=== PATIENT | female | born 1995 | race Two or more races ===

== ENCOUNTER 2025-04-29 07:59 | Observation (INO) | payer BC, SELFPAY ==
[2025-04-29] VITALS (44 sets, daily range): BP systolic 121–129; BP diastolic 85–99; PULSE 106–130; RESP 16–97; TEMP 36.9; O2SAT 92–98; BMI 39.3
--- NOTE | 2025-04-29 08:15 | XR_ITS ---
Examination: Complete OB ultrasound greater than 14 weeks Date and time of exam: April 29, 2025, 0908 hrs. Indications: Decreased movement beginning 2 days ago. Findings: Viable intrauterine single fetus with single amniotic sac presentation cephalic, spine maternal right. Cardiac motion 147 BPM. Placenta anterior grade 2. Umbilical cord insertion seen. Amniotic fluid index 6.2 cm. Cervix 3.6 cm Ovaries obscured by the fetus. Composite estimated gestational age based on BPD, head circumference, abdominal circumference, femur length is 34 weeks 6 days, estimated weight 2434 g Survey of intracranial anatomy, spinal anatomy, abdominal anatomy, four-chamber heart performed with no abnormalities identified. Impression: Viable intrauterine gestation cephalic presentation..
--- NOTE | 2025-04-29 08:15 | XR_ITS ---
Examination: Biophysical profile, ultrasound Date and time of exam: April 29, 2025, 0926 hrs. Indications: Decreased movement beginning 2 days ago. Technique: Multiple transabdominal sonographic images of the pelvis abdomen obtained. Attention is directed to the breathing movement, gross body movement, amniotic fluid volume and tone. Findings: Amniotic fluid index 6.7 cm. Total biophysical profile is 8 of 8. breathing movement is 2. Gross body movement is 2. tone is 2. Qualitative amniotic fluid volume is 2 Impression: Biophysical profile is 8 of 8.
[2025-04-29 09:16] LABS: Collection Type, Urine Clean Catch
[2025-04-29 09:28] LABS: Bilirubin,Urine Negative (Negative); Blood,Urine Negative (Negative); Clarity,Urine Clear (Clear/Hazy); Color,Urine Lt-Yellow (Lt Yel-Yel); Glucose, Urine Negative (Negative); Ketones,Urine Negative (Negative); Leukocyte Esterase,Urine Negative (Negative); Nitrite,Urine Negative (Negative); PH,Urine 7.0 (5.0-7.0); Protein,Urine Negative (Neg - Trace); RBC,Urine 1 /hpf (0-3); Specific Gravity,Urine 1.007 (1.001-1.035); Squamous Epithelial Cell,Urine 4 /hpf (0-5); Urobilinogen,Urine Negative mg/dL (0.0-1.0); WBC,Urine < 1 /hpf (0-5)
[2025-04-29 09:31] LABS: Basophils # (Auto) 0.0 Thou/mm3 (0.0-0.2); Basophils % (Auto) 0 % (0-2.5); Eosinophils # (Auto) 0.0 Thou/mm3 (0.0-0.5); Eosinophils % (Auto) 0 % (0-10); Hematocrit 40.6 % (36.0-46.0); Hemoglobin 13.3 g/dL (12.0-16.0); Immature Granulocytes Auto 0.05 Thou/mm3 (0.00-0.00); Lymphocytes # (Auto) 1.3 Thou/mm3 (1.0-4.8); Lymphocytes % (Auto) 13 % (10-50); Mean Corpuscular HGB Conc 32.8 g/dl (31.0-37.0); Mean Corpuscular Hemoglobin 27.5 pg (25.0-35.0); Mean Corpuscular Volume 84 fL (80-100); Monocytes # (Auto) 1.0 Thou/mm3 (0.0-0.8); Monocytes % (Auto) 9 % (0-12); Neutrophils # (Auto) 7.8 Thou/mm3 (1.8-7.7); Neutrophils % (Auto) 77 % (37-80); Nucleated Red Blood Cell # 0.00 Thou/mm3 (0.00-0.00); Nucleated Red Blood Cell % 0 /100 WBC (0); Platelet Count 234 Thou/mm3 (140-440); RDW Standard Deviation 39.8 fL (36.4-46.3); Red Blood Count 4.84 Miln/mm3 (4.00-5.20); White Blood Count 10.2 Thou/mm3 (3.6-11.0)
[2025-04-29 09:41] LABS: INR 0.9 (0.9-1.3); Partial Thromboplastin Time 29.6 Seconds (22.0-36.0); Prothrombin Time 10.3 Seconds (9.0-12.2)
[2025-04-29 09:43] LABS: Fibrinogen 759 mg/dL (175-375)
[2025-04-29 10:05] LABS: Creatinine,Random Urine 30 mg/dL (30-125); Protein Total, Random Urine < 6 mg/dL (1-14)
[2025-04-29 10:11] LABS: Alanine Aminotransferase 17 U/L (10-49); Albumin, Serum 3.7 gm/dL (3.5-5.0); Albumin/Globulin Ratio 1.4 (1.2-2.2); Alkaline Phosphatase 149 U/L (46-116); Anion Gap 10 (7-16); Aspartate Amino Transferase 19 U/L (0-34); BUN/Creatinine Ratio 10 Ratio (12-20); Bilirubin,Total 0.5 mg/dL (0.3-1.2); Blood Urea Nitrogen < 5 mg/dL (9-23); Calcium 9.6 mg/dL (8.3-10.6); Calcium (Corrected) 9.8 mg/dL (8.5-10.1); Carbon Dioxide 22.4 mMol/L (20.0-31.0); Chloride 106 mMol/L (98-107); Creatinine (Component) 0.5 mg/dL (0.6-1.3); Globulin 2.6 gm/dL (2.3-3.5); Glucose 97 mg/dL (74-106); Osmolality,Calculated 272 (275-295); Potassium 4.0 mMol/L (3.4-5.1); Sodium 138 mMol/L (136-145); Total Protein 6.3 gm/dL (5.7-8.2); eGFR > 60 See Note
[2025-04-29 10:23] LABS: Uric Acid 3.2 mg/dL (3.1-7.8)
== END 2025-04-29 11:50 | disposition home or self-care (01) ==
PROVIDERS: Admitting Provider Obstetrics & Gynecology; Visit Provider Obstetrics & Gynecology
DX: O36.8130 Decreased fetal movements, third trimester, not applicable or unspecified (principal); Z3A.34 34 weeks gestation of pregnancy
CPT/HCPCS: 36415; 59025; 59899; 76805; 76819; 80053; 81001; 82570; 84156; 84550; 85025; 85384; 85610; 85730

== ENCOUNTER 2025-06-01 05:43 | Inpatient (IN) | payer BC, SELFPAY ==
--- NOTE | 2025-05-25 19:34 | ESHP_ITS ---
RE: JAIMIE HUANG : 1995 DATE OF ADMISSION: 06/01/2025 HISTORY OF PRESENT ILLNESS: This is a 30-year-old 2 para 1-0-0-1 with due date of 06/08/2025 with intrauterine at 39 weeks on 06/01/2025, who presents for repeat delivery and bilateral tubal ligation. The patient denies any leaking or bleeding. She reports normal movement. She has occasional contractions. ALLERGIES: NO KNOWN DRUG ALLERGIES. MEDICATION: multivitamin 1 p.o. daily. PAST MEDICAL HISTORY: Anxiety. FAMILY HISTORY: Down syndrome and diabetes. SOCIAL HISTORY: She is . She denies any alcohol or drug use or smoking. OBSTETRIC HISTORY: 05/20/2022, 40 weeks delivery, 6 pound 8 ounce male, no complications. PAST SURGICAL HISTORY: 2021 delivery. REVIEW OF SYSTEMS: She denies any chest pain, palpitations, cough, fever, shortness of breath or lower extremity pain. She denies any headache, change in vision or right upper quadrant pain. PHYSICAL EXAMINATION: VITAL SIGNS: Blood pressure is 133/85, heart rate 88, respirations 18, temperature is 98.6, and weight 285 pounds. HEENT: Oropharynx and sclerae are clear. LUNGS: Clear to auscultation bilaterally. HEART: Regular rate and rhythm. ABDOMEN: Gravid term size. Old Pfannenstiel scar noted. EXTREMITIES: Nontender. SKIN: No gross rashes or lesions. NEUROLOGIC: No focal deficit. ASSESSMENT: Intrauterine at 39 weeks, previous delivery, elects to repeat delivery, multiparity, desires voluntary sterilization. PLAN: delivery and bilateral tubal ligation. Informed consent was obtained. The patient was made aware of the risks, complications, alternatives, and benefits of the proposed procedure and she agrees. DT: 19:02:10 TT: 19:32:00 Ref: [id number] - TID: [id number] MTDD
[2025-05-31 09:13] LABS: Basophils # (Auto) 0.0 Thou/mm3 (0.0-0.2); Basophils % (Auto) 0 % (0-2.5); Eosinophils # (Auto) 0.1 Thou/mm3 (0.0-0.5); Eosinophils % (Auto) 1 % (0-10); Hematocrit 41.6 % (36.0-46.0); Hemoglobin 13.8 g/dL (12.0-16.0); Immature Granulocytes Auto 0.06 Thou/mm3 (0.00-0.00); Lymphocytes # (Auto) 2.8 Thou/mm3 (1.0-4.8); Lymphocytes % (Auto) 23 % (10-50); Mean Corpuscular HGB Conc 33.2 g/dl (31.0-37.0); Mean Corpuscular Hemoglobin 27.5 pg (25.0-35.0); Mean Corpuscular Volume 83 fL (80-100); Monocytes # (Auto) 0.9 Thou/mm3 (0.0-0.8); Monocytes % (Auto) 8 % (0-12); Neutrophils # (Auto) 8.2 Thou/mm3 (1.8-7.7); Neutrophils % (Auto) 68 % (37-80); Nucleated Red Blood Cell # 0.00 Thou/mm3 (0.00-0.00); Nucleated Red Blood Cell % 0 /100 WBC (0); Platelet Count 248 Thou/mm3 (140-440); RDW Standard Deviation 41.0 fL (36.4-46.3); Red Blood Count 5.02 Miln/mm3 (4.00-5.20); White Blood Count 12.0 Thou/mm3 (3.6-11.0)
[2025-05-31 09:28] LABS: Alanine Aminotransferase 14 U/L (10-49); Albumin, Serum 3.8 gm/dL (3.5-5.0); Albumin/Globulin Ratio 1.5 (1.2-2.2); Alkaline Phosphatase 172 U/L (46-116); Anion Gap 10 (7-16); Aspartate Amino Transferase 19 U/L (0-34); BUN/Creatinine Ratio 15 Ratio (12-20); Bilirubin,Total 0.5 mg/dL (0.3-1.2); Blood Urea Nitrogen 9 mg/dL (9-23); Calcium 9.1 mg/dL (8.3-10.6); Calcium (Corrected) 9.3 mg/dL (8.5-10.1); Carbon Dioxide 23.4 mMol/L (20.0-31.0); Chloride 106 mMol/L (98-107); Creatinine (Component) 0.6 mg/dL (0.6-1.3); Globulin 2.5 gm/dL (2.3-3.5); Glucose 83 mg/dL (74-106); Osmolality,Calculated 275 (275-295); Potassium 4.1 mMol/L (3.4-5.1); Sodium 139 mMol/L (136-145); Total Protein 6.3 gm/dL (5.7-8.2); eGFR > 60 See Note
[2025-05-31 10:00] LABS: Syphilis Nonreactive (Nonreactive)
[2025-05-31 10:03] LABS: INR 0.9 (0.9-1.3); Partial Thromboplastin Time 29.0 Seconds (22.0-36.0); Prothrombin Time 10.1 Seconds (9.0-12.2)
[2025-06-01] VITALS (37 sets, daily range): BP systolic 131–169; BP diastolic 82–114; PULSE 78–109; RESP 14–30; TEMP 36.2–37.1; O2SAT 93–99; BMI 41.6
[2025-06-01] MEDS: ceFAZolin/D5W 2 GM IV 2 GM/100 ML BAG IV (07:23)
[2025-06-01] MEDS: CITRIC ACID/SODIUM CITR 15 ML UDC (BICITRA) 30 ML PO (07:23)
[2025-06-01] MEDS: FAMOTIDINE INJ 10 MG/ML VIAL 2 ML 20 MG IV (07:24)
[2025-06-01] MEDS: RINGERS LACTATED 1000 ML 1,000 ML 100 ML IV (07:26)
--- NOTE | 2025-06-01 08:36 | ESDS_ITS ---
DS: Providers Provider Date of admission: 06/01/25 05:43 Primary care physician: Physician No Primary/Family Admitting Provider: Rafa Chester MD Attending Provider on Admission: Rafa Chester MD Attending Provider on DC: Rafa Chester MD Discharging Provider: Rafa Chester MD DS: Diagnosis Discharge Diagnosis (1) Status post bilateral salpingectomy: Status: Acute (2) delivery delivered: Status: Acute Problem List Completed Was Problem List Reviewed/Reconciled?: Yes Summary/Hosp Course Peripartum Data Delivery Method: Low Transverse Procedures: Procedures Operation Date: 06/01/25 07:45 <No data on this case meets the specified criteria> Time Spent with Patient Time attestation: Total time spent providing and/or coordinating discharge services: Exam Vital Signs Temp Pulse Resp BP Pulse Ox O2 Del Method 98.2 F 90 19 137/96 H 98 Room Air 06/01/25 07:00 06/01/25 06:00 06/01/25 07:00 06/01/25 06:00 06/01/25 07:23 06/01/25 07:00 Discharge Plan Plan Patient Disposition: HOME (Self Care) Patient condition on transfer: Stable Prescriptions/Referrals Referrals: No Primary/Family,Physician [Primary Care Provider] Patient/Caregiver Discharge Instructions Discharge Activity: activity as tolerated Other Discharge Activity Instructions:: Follow up office 1 week She already has a Rx for [place] Education Materials: C Section Dc Print Language: Maori Stand Alone Forms: Rhona Award Info., Patient Portal Info Letter Planned Discharge Date 06/03/25
--- NOTE | 2025-06-01 08:37 | PD.GYNPROC ---
Operative Note - DOUBLE BASS PLAYER Procedure Date of procedure: 06/01/25 Procedure Performed: Repeat low-transverse section via Pfannenstiell skin incision Indication: Intrauterine at 39 weeks and 0 days Multiparity desires voluntary sterilization Previous delivery elects repeat delivery Pre-Op diagnosis: Intrauterine at 39 weeks and 0 days Multiparity desires voluntary sterilization Previous delivery elects repeat delivery Post-Op diagnosis: Intrauterine at 39 weeks and 0 days Multiparity desires voluntary sterilization Previous delivery elects repeat delivery Anesthesia type: Spinal Procedure description: After proper informed consent was obtained and the patient was made aware of the risks, complications, alternatives and benefits of the proposed procedure she was taken to the operating room where she underwent induction of spinal anesthesia. She was prepped and draped in the usual sterile fashion. A timeout was performed.? A Pfannenstiel skin incision was made with the scalpel and carried through to the underlying layer of fascia with the Bovie. The fascia was nicked in the midline incision and the incision was extended bilaterally with the Bovie. The inferior aspect of the fascial incision was grasped with Rosana clamps elevated and the underlying rectus muscle dissected off with the Bovie. The superior aspect the fascial incision was grasped with Rosana clamps elevated and the underlying rectus muscle dissected off with the Bovie. The rectus muscles were in the midline. The peritoneum was grasped between 2 Quinn clamps and entered sharply with the Metzenbaum scissors. The peritoneum was extended superiorly and inferiorly with good visualization of the bladder. The vesicouterine peritoneum was incised transversely and the bladder flap created digitally. A [place] blade was inserted. A low transverse incision was made in the uterus with a scapel and the incision was extended digitally. The female 's head delivered and the mouth and nose were suctioned with the bulb suction. The shoulder and body delivered atraumatically. The cord was clamped after 30 second delayed cord clamping and the cord was cut.? The infant was handed off to the waiting Pediatric staff, cord blood was collected for lab testing. The placenta was removed complete and intact. The uterus was exteriorized and cleared of all clots and debris. The uterine incision was closed with #1-0 chromic catgut suture in a running interlocking fashion. A second layer of the same suture was used to imbricate the first layer and obtain excellent hemostasis. The vesicouterine peritoneum was closed with 2-0 chromic catgut suture in a running fashion. Attention was turned to the left fallopian tube which was grasped at the fimbriated end with a Vick clamp and using the Enseal X-1 large jaw a left salpingectomy was performed. Hemostasis achieved. Attention was turned to the right fallopian tube which was grasped at the fimbriated end with a [place] clamp and using the Enseal X-1 large jaw a left salpingectomy was performed. Hemostasis achieved. The firm uterus was returned to the abdomen. The gutters were cleared of all clots and debris. The adnexae were revisualized along with the lower uterine segment and all was hemostatic. The peritoneum was closed with 0 chromic catgut suture in running fashion. The rectus muscle was closed with 0 chromic catgut suture. The fascia was closed with 0 Vicryl beginning at each angle and ending in the center in a running fashion. The subcutaneous tissue was irrigated with warmed normal saline solution and found to be hemostatic. The subcutaneous tissue was closed with 2-0 chromic catgut suture in a running fashion. The skin was closed with 4-0 Monocryl. A Dermabond Prineo dressing was applied and a sterile pressure dressing was applied.? She tolerated the procedure well. Counts were correct. I discussed with the patient the nature of her condition, intraoperative findings and expectation for recovery all questions answered. Specimen: left tube and right tube Estimated blood loss (ml): 400 Findings: Live female infant Apgars see RN notes Weight see RN notes Thick meconium stained amniotic fluid Placenta removed complete and intact Uterus ovaries and tubes grossly within normal limits Complications: none Surgical staff REYMUNDO Borges's PORTABLE POWER TOOL REPAIRER Operation Date: 06/01/25 07:45 <No data on this case meets the specified criteria> Diagnosis Discharge Diagnosis (1) Status post bilateral salpingectomy: Status: Acute (2) delivery delivered: Status: Acute Problem List Completed Was Problem List Reviewed/Reconciled?: Yes
[2025-06-01] MEDS: ONDANSETRON INJ 2 MG/ML INJ 2 ML 4 MG IVP (09:14)
--- NOTE | 2025-06-01 11:21 | PC.NURSE ---
06/01/2025 1119: Dr. Chester notified of pts. condition during recovery. Pt. experiencing intermittent nausea/vomiting. Zofran given. During beginning of recovery 2 systolic blood pressures were 166, 151 at the 9oclock hour; 140s at the 10 oclock hour and now 130s at end of recovery. Orders received to call Dr. Chester if BPs are equal to or greater than 160/110 or if nausea/vomiting continues.
[2025-06-01 13:09] LABS: Basophils # (Auto) 0.1 Thou/mm3 (0.0-0.2); Basophils % (Auto) 0 % (0-2.5); Eosinophils # (Auto) 0.0 Thou/mm3 (0.0-0.5); Eosinophils % (Auto) 0 % (0-10); Hematocrit 40.8 % (36.0-46.0); Hemoglobin 13.3 g/dL (12.0-16.0); Immature Granulocytes Auto 0.09 Thou/mm3 (0.00-0.00); Lymphocytes # (Auto) 2.0 Thou/mm3 (1.0-4.8); Lymphocytes % (Auto) 11 % (10-50); Mean Corpuscular HGB Conc 32.6 g/dl (31.0-37.0); Mean Corpuscular Hemoglobin 27.5 pg (25.0-35.0); Mean Corpuscular Volume 84 fL (80-100); Monocytes # (Auto) 1.2 Thou/mm3 (0.0-0.8); Monocytes % (Auto) 6 % (0-12); Neutrophils # (Auto) 15.4 Thou/mm3 (1.8-7.7); Neutrophils % (Auto) 82 % (37-80); Nucleated Red Blood Cell # 0.00 Thou/mm3 (0.00-0.00); Nucleated Red Blood Cell % 0 /100 WBC (0); Platelet Count 238 Thou/mm3 (140-440); RDW Standard Deviation 42.6 fL (36.4-46.3); Red Blood Count 4.84 Miln/mm3 (4.00-5.20); White Blood Count 18.8 Thou/mm3 (3.6-11.0)
[2025-06-01] MEDS: OXYTOCIN in NS 20 units 20 UNIT/1,000 ML BAG 125 UNIT IV (18:04)
[2025-06-02] VITALS: BP 129/85; PULSE 102; RESP 17; TEMP 37.1; O2SAT 98
[2025-06-02 04:00] VITALS: BP 131/87; PULSE 96; RESP 16; TEMP 37.1; O2SAT 95
[2025-06-02 08:00] VITALS: BP 122/86; PULSE 84; RESP 16; TEMP 36.9; O2SAT 96
[2025-06-02] MEDS: DOCUSATE SOD 100 MG CAPSULE PO (08:19)
[2025-06-02] MEDS: SIMETHICONE 80 MG CHEW PO (08:19)
[2025-06-02] MEDS: ENOXAPARIN SOD INJ 40 MG/0.4 ML SYRINGE SC (08:20)
[2025-06-02] MEDS: KETOROLAC INJ 30 MG/ML VIAL IVP (08:20)
--- NOTE | 2025-06-02 09:02 | ESPR_ITS ---
RE: JAIMIE HUANG : 1995 DATE OF SERVICE: 06/02/2025 SUBJECTIVE: Postop day #1. The patient denies any problem or complaints. She is voiding. She is ambulating. She is tolerating her diet. She is passing flatus. She denies any excessive vaginal bleeding. She denies any dizziness or lightheadedness. She denies any chest pain, palpitations, shortness of breath or lower extremity pain. OBJECTIVE: Vital Signs: Blood pressure 131/87, heart rate 96, respirations 16, temperature 98.7, pulse oximetry is 95% on room air. Lungs: Clear to auscultation bilaterally. Heart: Regular rate and rhythm. Abdomen: Incision clean and intact. Fundus is firm. Extremities: Nontender. ASSESSMENT: Postop day #1 status post delivery and bilateral salpingectomy. PLAN: Remove dressing, discontinue IV. Encouraged ambulation, support, possible discharge home tomorrow. DT: 07:10:51 TT: 09:00:00 Ref: [id number] - TID: [id number]
[2025-06-02 11:54] VITALS: BP 122/85; PULSE 94; RESP 18; TEMP 36.7; O2SAT 96
[2025-06-02] MEDS: IBUPROFEN TAB 400 MG TABLET 800 MG PO (18:10)
--- NOTE | 2025-06-02 18:47 | PC.CC ---
Liliana Bradley is a 30-year-old female admitted for labor and delivery care. Certified Prosthetist made contact with Pt at bedside to complete ob assessment and discuss discharge disposition. Role and reason for the contact was explained to Pt. Demographic information was verified. Pt identified father of baby Rudy Bradley [phone] as surrogate decision maker. Pt is independent with all ADLs, no source of DME. PCP is Rafa Serrano. At time of discharge patient will return home, family will provide transportation. Mother plans on combo feeing, has car seat, and all supplies for baby. Mother denies any use of substance, no DV, no CPS. Mother reports support system provided by extended family. Discharge Plan: Home Next of Kin: Rudy Bradley [phone] PCP: Rafa Serrano
[2025-06-02 20:32] VITALS: BP 118/80; PULSE 96; RESP 16; TEMP 36.6; O2SAT 96
[2025-06-03] MEDS: IBUPROFEN TAB 400 MG TABLET 800 MG PO (03:40)
[2025-06-03 03:56] VITALS: BP 120/81; PULSE 78; RESP 16; TEMP 36.9; O2SAT 98
[2025-06-03 08:00] VITALS: BP 132/82; PULSE 77; RESP 16; TEMP 36.8; O2SAT 97
--- NOTE | 2025-06-03 09:27 | PD.LDPPPRG ---
Subjective Subjective Interval history: Patient denies any primary complaint. She is voiding and ambulating and tolerating a regular diet. She denies any excessive vaginal bleeding. She denies any dizziness or lightheadedness. She denies any chest pain palpitation shortness of breath or lower extremity pain. Exam Vital Signs Temp Pulse Resp BP Pulse Ox O2 Del Method 98.2 F 77 16 132/82 H 97 Room Air 06/03/25 08:00 06/03/25 08:00 06/03/25 08:00 06/03/25 08:00 06/03/25 08:00 06/03/25 08:00 Routine Respiratory Exam Comments: Clear to auscultation bilaterally Routine Cardiovascular Exam Comments: Regular rate and rhythm Routine Abdominal Exam Comments: Incision clear and intact, nondistended, fundus is firm. Routine Extremities Exam Comments: Nontender Objective Labs 06/01/25 12:45 05/31/25 08:46 Assessment & Plan Problem List (1) Status post bilateral salpingectomy: Status: Acute Assessment and plan: Post op day #2 status post delivery and bilateral tubal ligation Discharge home Discharge instructions given Follow-up in the office in 1 week (2) delivery delivered: Status: Acute Time Spent With Patient Time: Total time spent is greater than 50% in coordination of care (as documented) at patient's floor/unit and/or counseling patient:
--- NOTE | 2025-06-03 09:33 | PD.LDDELS ---
Data (Javier) Data Hx Section: Yes : 2 Term: 1 : 0 Livin Abortions: Spontaneous & Theraputic: 0 Delivery Data (Javier) Labor Data ROM date: 06/01/25 ROM time: 08:05 Amniotic membrane rupture type: Artificial Amniotic fluid description: Moderate Meconium Delivery Data EDC: 06/08/25 EDC calculated by:: LMP/early US confirmation [place] delivery date: 06/01/25 [place] delivery time: 08:06 Gestational age (weeks): 39 Gestational age (days): 0 Placenta delivery date: 06/01/25 Placenta delivery time: 08:07 Delivered by: Rafa Chester Delivery nurse: XIN Mello [place] nurse: XIN Cotto Driver Education Instructor at delivery: No Support person(s) at delivery: FOB Delivery Method Delivery method: Low Transverse Presentation: Vertex position: OA Anesthesia Type Anesthesia Type: Spinal Anesthesia type: Spinal Placenta Placenta delivery description: Manual Removal Cord blood sent to lab: Yes cord blood collection: Cord Blood Type EBL Estimated blood loss (ml): 500 Data (Javier) [place] Data order: 1 's gender: Female Identification band number: [id number] weight (gms): 7 lb 5.11 oz Weight (pounds): 7 lbs and 5.1 ozs [place] length: 19.5 in 1 minute: 9 5 minutes: 9
== END 2025-06-03 10:05 | disposition home or self-care (01) | DRG 785 ==
LOC: S4SX 05:57 → S4NX 08:05
PROVIDERS: Admitting Provider Specialist; Visit Provider Specialist
PROC: 0UL70ZZ Occlusion of Bilateral Fallopian Tubes, Open Approach (ICD-10-PCS; CPT 59514; principal; 2025-06-01 07:30)
DX: O34.211 Maternal care for low transverse scar from previous cesarean delivery (principal); Z30.2 Encounter for sterilization; Z37.0 Single live birth; Z3A.39 39 weeks gestation of pregnancy; O77.0 Labor and delivery complicated by meconium in amniotic fluid
CPT/HCPCS: 36415; 59409; 80053; 85025; 85610; 85730; 86780; 86850; 86900; 86901; 94762; A4217; A4649; J0689; J1200; J1650; J1885; J2250; J2274; J2371; J2405; J2590; J3490; J7120; A9270; J2270